=== PATIENT | female | born 1980 | race Caucasian/White ===

== ENCOUNTER 2020-04-20 10:32 | Emergency (ER) | payer SELFPAY ==
[~2020-04-20 10:32] MED LIST: ASPIRIN 81 MG TAB CHEW PO ONE
--- NOTE | 2020-04-20 10:32 | Emergency Department Report ---
ED Chest Pain HPI - General Stated Complaint: CHEST PAIN - History of Present Illness Initial Comments: Patient is a 40-year-old female who presents to the emergency department for evaluation of intermittent chest tightness diffusely across her entire chest beginning last night and again occurring upon awakening this morning. Patient states she also felt like both of her legs were shaking. Patient denies shortness of breath, denies pleuritic symptoms, denies calf pain or swelling. Patient denies fever cough - Related Data Previous Rx's Medication Instructions Recorded Last Taken Type DOXYCYCLINE Hyclate [Vibramycin 100 mg PO Q12HR #14 capsule 03/12/15 Unknown Rx CAP] Ibuprofen [Motrin] 800 mg PO Q8HR PRN #30 tablet 03/12/15 Unknown Rx Methylergonovine [Methergine] 0.2 mg PO Q8HR #6 tablet 03/12/15 Unknown Rx Allergies Allergy/AdvReac Type Severity Reaction Status Date / Time No Known Allergies Allergy Verified 03/12/15 03:15 Heart Score - HEART Score History: Slightly suspicious EKG: Normal Age: < 45 Risk factors: No known risk factors Troponin: < normal limit HEART Score: 0 - Critical Actions Critical Actions: 0-3 pts:0.9-1.7%risk of adverse cardiac event.Candidate for discharge ED Review of Systems ROS: Stated complaint: CHEST PAIN Other details as noted in HPI Constitutional: denies: chills, fever Eyes: denies: eye pain, eye discharge, vision change ENT: denies: ear pain, throat pain Respiratory: denies: cough, shortness of breath, wheezing Cardiovascular: as per HPI Endocrine: no symptoms reported Gastrointestinal: denies: abdominal pain, nausea, diarrhea Genitourinary: denies: urgency, dysuria, discharge Musculoskeletal: denies: back pain, joint swelling, arthralgia Skin: denies: rash, lesions Neurological: denies: headache, weakness, paresthesias Psychiatric: denies: anxiety, depression Hematological/Lymphatic: denies: easy bleeding, easy bruising ED Past Medical Hx - Past Medical History Hx Hypertension: No Hx Heart Attack/AMI: No Hx Liver Disease: No Hx Renal Disease: No Hx Asthma: No - Social History Smoking Status: Never Smoker Substance Use Type: None - Medications Home Medications: Home Medications Medication Instructions Recorded Confirmed Last Taken Type DOXYCYCLINE Hyclate [Vibramycin 100 mg PO Q12HR #14 capsule 03/12/15 Unknown Rx CAP] Ibuprofen [Motrin] 800 mg PO Q8HR PRN #30 tablet 03/12/15 Unknown Rx Methylergonovine [Methergine] 0.2 mg PO Q8HR #6 tablet 03/12/15 Unknown Rx ED Physical Exam - General General appearance: alert, in no apparent distress - Head Head exam: Present: atraumatic, normocephalic - Eye Eye exam: Present: normal appearance - ENT ENT exam: Present: mucous membranes moist - Neck Neck exam: Present: normal inspection - Respiratory Respiratory exam: Present: normal lung sounds bilaterally. Absent: respiratory distress - Cardiovascular Cardiovascular Exam: Present: regular rate, normal rhythm - GI/Abdominal GI/Abdominal exam: Present: soft, normal bowel sounds - Extremities Exam Extremities exam: Present: normal inspection - Back Exam Back exam: Present: normal inspection - Neurological Exam Neurological exam: Present: alert, oriented X3 - Psychiatric Psychiatric exam: Present: normal affect, normal mood - Skin Skin exam: Present: warm, dry, intact, normal color. Absent: rash ED Course Vital Signs 04/20/20 04/20/20 04/20/20 10:31 11:21 11:31 Temperature 97.9 F Pulse Rate 84 83 Respiratory 17 16 21 Rate Blood Pressure 150/77 165/92 O2 Sat by Pulse 99 98 98 Oximetry 04/20/20 12:00 Temperature Pulse Rate 67 Respiratory 18 Rate Blood Pressure 138/93 O2 Sat by Pulse 97 Oximetry - Reevaluation(s) Reevaluation #1: 04/20/20 12:39 Patient reevaluated and remains in no acute distress. Patient now denies any symptoms, stating she feels much better. Patient's daughter contacted, case discussed. Patient advised cardiac disease cannot be elevated in the emergency department and consequently follow-up as indicated. ED Medical Decision Making - Lab Data Result diagrams: 04/20/20 11:03 04/20/20 11:03 Labs 04/20/20 04/20/20 11:03 11:03 WBC 9.3 RBC 4.74 Hgb 13.8 Hct 40.3 MCV 85 MCH 29 MCHC 34 RDW 14.0 Plt Count 272 Lymph % (Auto) 31.9 [place] % (Auto) 11.8 H Eos % (Auto) 5.3 H Baso % (Auto) 0.1 Lymph # (Auto) 3.0 [place] # (Auto) 1.1 H Eos # (Auto) 0.5 H Baso # (Auto) 0.0 Seg Neutrophils % 50.9 Seg Neutrophils # 4.7 Sodium 137 Potassium 3.9 Chloride 102.0 Carbon Dioxide 25 Anion Gap 14 BUN 12 Creatinine 0.7 Estimated GFR > 60 BUN/Creatinine Ratio 17 Glucose 114 H Calcium 9.1 Total Bilirubin 0.90 AST 49 H ALT 82 H Alkaline Phosphatase 122 Troponin T < 0.010 Total Protein 7.1 Albumin 4.1 Albumin/Globulin Ratio 1.4 Lipase 38 Vital Signs 04/20/20 04/20/20 04/20/20 10:31 11:21 11:31 Temperature 97.9 F Pulse Rate 84 83 Respiratory 17 16 21 Rate Blood Pressure 150/77 165/92 O2 Sat by Pulse 99 98 98 Oximetry 04/20/20 12:00 Temperature Pulse Rate 67 Respiratory 18 Rate Blood Pressure 138/93 O2 Sat by Pulse 97 Oximetry - EKG Data -: EKG Interpreted by Me (Sinus rhythm at 86, no ST-T changes, normal QRS 11:20) - Radiology Data Radiology results: report reviewed Chest x-ray negative per radiology - Medical Decision Making PERC score 0 out of 8 Critical care attestation.: If time is entered above; I have spent that time in minutes in the direct care of this critically ill patient, excluding procedure time. ED Disposition Clinical Impression: Chest pain Disposition: DC-01 TO HOME OR SELFCARE Is pt being admited?: No Condition: Stable Instructions: Nonspecific Chest Pain, Adult, Chest Pain (ED) Additional Instructions: Follow-up with primary care doctor or cardiology in 1 to 2 days for reevaluation. Referrals: RAFAELA TRIPP MD [Staff Physician] - 3-5 Days Print Language: CHADIAN
[2020-04-20 11:22] LABS: Basophils % (Auto) 0.1 % (0.0-1.8); Eosinophils # (Auto) 0.5 K/mm3 (0.0-0.4); Eosinophils % (Auto) 5.3 % (0.0-4.3); Hematocrit 40.3 % (30.3-42.9); Hemoglobin 13.8 gm/dl (10.1-14.3); Lymphocytes % (Auto) 31.9 % (13.4-35.0); Mean Corpuscular HGB Conc 34 % (30-34); Mean Corpuscular Volume 85 fl (79-97); Monocytes # (Auto) 1.1 K/mm3 (0.0-0.8); Monocytes % (Auto) 11.8 % (0.0-7.3); Platelet Count 272 K/mm3 (140-440); Red Blood Count 4.74 M/mm3 (3.65-5.03)
--- NOTE | 2020-04-20 11:34 | XRay Report ---
CHEST 1 VIEW 04/20/2020 11:14 AM INDICATION / CLINICAL INFORMATION: Chest Pain. COMPARISON: 03/12/15 FINDINGS: SUPPORT DEVICES: None. HEART / MEDIASTINUM: No significant abnormality. LUNGS / PLEURA: No significant pulmonary or pleural abnormality. No pneumothorax. ADDITIONAL FINDINGS: No significant additional findings. IMPRESSION: 1. No acute findings. Signer Name: Paula Johansen MD Signed: 04/20/2020 11:29 AM Workstation Name: [id number]
[2020-04-20 11:41] LABS: Alanine Aminotransferase 82 units/L (7-56); Albumin 4.1 g/dL (3.9-5); Blood Urea Nitrogen 12 mg/dL (7-17); Calcium 9.1 mg/dL (8.4-10.2); Hemolysis Index 10
[2020-04-20 11:42] LABS: BUN/Creatinine Ratio 17
[2020-04-20 12:09] VITALS: BP 138/93
== END 2020-04-20 12:29 | disposition home or self-care (01) ==
LOC: ED 10:32
DX: R07.89 Other chest pain (principal); Z79.899 Other long term (current) drug therapy
CPT/HCPCS: 36415; 71045; 80053; 83690; 84484; 85025; 93005